=== PATIENT | female | born 1955 | race Caucasian/White ===

== ENCOUNTER 2017-01-22 13:55 | Emergency (ER) | payer MEDICARE, OTHER ==
[~2017-01-22] VITALS: Ht 170.2 cm; Wt 65.0 kg
[~2017-01-22 13:55] MED LIST: ADVI200C; FOSA70TA PO; LEVO100T4 PO; LORTA10 PO; PROT40TA PO; PROZ40CA PO; QUET25; TRAZ300T2 PO
[2017-01-22 13:57] VITALS: BP 125/82; PULSE 110; RESP 17; TEMP 97.8; O2SAT 95
[2017-01-22 14:28] VITALS: BP 103/68; PULSE 100; RESP 18; O2SAT 96
[2017-01-22] MEDS ORDERED: AMOX875T PO (14:31)
[2017-01-22] MEDS ORDERED: FLUT50SP EACH NARE (14:31)
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
== END 2017-01-22 14:39 | disposition home or self-care (01) ==
LOC: NEPD 13:55
DX: J01.90 Acute sinusitis, unspecified (principal); R05 Cough; I10 Essential (primary) hypertension; Z87.39 Personal history of other diseases of the musculoskeletal system and connective tissue; Z86.59 Personal history of other mental and behavioral disorders; Z85.038 Personal history of other malignant neoplasm of large intestine; Z86.79 Personal history of other diseases of the circulatory system; Z87.19 Personal history of other diseases of the digestive system; Z86.69 Personal history of other diseases of the nervous system and sense organs
CPT/HCPCS: 99283